=== PATIENT | female | born 1960 | race Caucasian/White ===

== ENCOUNTER 2020-10-23 13:45 | Outpatient (CLI) | payer OTHER | END 2020-10-23 13:46 | disposition critical access hospital (66) | LOC: EMS 13:45 | DX: S09.90XA Unspecified injury of head, initial encounter (principal); W01.198A Fall on same level from slipping, tripping and stumbling with subsequent striking against other object, initial encounter; Y93.K1 Activity, walking an animal; Y92.830 Public park as the place of occurrence of the external cause | CPT/HCPCS: A0425; A0429 ==

== ENCOUNTER 2020-10-23 13:58 | Emergency (ER) | payer OTHER ==
[2020-10-23] MEDS ORDERED: ACETAMINOPHEN 325 MG TABLET PO STA (14:35)
--- NOTE | 2020-10-23 15:48 | CT Report ---
PROCEDURE: CHEST WO INDICATIONS: thoracic midline ttp after fall from standing TECHNIQUE: Noncontrast 5 mm thick sections acquired from the pulmonary apices to the posterior costophrenic angl es. 7 mm thick coronal and sagittal MIP reformats were then acquired. For radiation dose reduction, the following was used: automated exposure control, adjustment of mA and/or kV according to patient size. COMPARISON: None. FINDINGS: Image quality: Excellent. Lungs and pleura: No acute air space opacities. No pleural effusions or pneumothorax. Central and peripheral airways are patent and normal in caliber. Mediastinum: Heart size is normal. No pericardial effusion. No mediastinal adenopathy by size crit eria. Thoracic aorta and central pulmonary arteries are normal in size. Esophagus is normal in lillie gomez. There is a small to moderate hiatal hernia. Bones and chest wall: No suspicious bony lesions. No vertebral body compression fractures. Mild to moderate dextroconvex thoracic scoliotic curvature is seen. Age-appropriate degenerative changes are seen. No axillary or supraclavicular adenopathy by size criteria. The thyroid is normal in size. Abdomen: A simple appearing liver cyst is seen on the right anteriorly, measuring 12 mm and water den sity. Nonobstructing left-sided kidney stones are seen that measure up to 3 mm. The visualized portio ns of the upper abdominal structures are otherwise within normal limits. IMPRESSION: No acute abnormality is seen. Specifically, no pneumothorax, displaced rib fracture, or acute appearing thoracic spine fracture is seen. Incidental note is made of: Mild to moderate dextroconvex scoliosis Small to moderate hiatal hernia Simple appearing liver cyst Nonobstructing left-sided kidney stones Reviewed by: René Whitten MD on 10/23/2020 2:46 PM GABRIELA Approved by: René Whitten MD on 10/23/2020 2:46 PM GABRIELA Station ID: [id number]
--- NOTE | 2020-10-23 16:02 | ED Physician Documentation ---
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 patient does not have neck pain and does not think she hit her head. no other injuries. no neuro deficits. Review of Systems Skin: denies: Lesions, Abrasion (s), Laceration (s) Musculoskeletal: reports: Back pain Neurologic: denies: Focal weakness, Numbness, Head injury, LOC PD PAST MEDICAL HISTORY - Past Medical History Past Medical History: No - Past Surgical History Past Surgical History: Yes /[employer]: section, Tubal ligation - Present Medications Home Medications: Ambulatory Orders Medication Instructions Recorded Confirmed Simvastatin [Zocor] 10 mg PO DAILY 10/23/20 10/23/20 - Allergies Allergies/Adverse Reactions: Allergies Allergy/AdvReac Type Severity Reaction Status Date / Time No Known Drug Allergies Allergy Verified 10/23/20 14:04 - Social History Does the pt smoke?: No Smoking Status: Never smoker Does the pt drink ETOH?: No Does the pt have substance abuse?: No - Immunizations Immunizations are current?: Yes - POLST Patient has POLST: No PD ED PE NORMAL - Vitals Vital signs reviewed: Yes - General General: Alert and oriented X 3, No acute distress, Well developed/nourished - HEENT HEENT: Atraumatic, PERRL, EOMI - Neck Neck: Supple, no meningeal sign, No bony TTP - Cardiac Cardiac: RRR - Respiratory Respiratory: No respiratory distress, Clear bilaterally - Abdomen Abdomen: Non tender, Non distended, Other (pelvis stable) - Back Back: Other (midline thoracic ttp. otherwise nontender) - Derm Derm: Normal color - Extremities Extremities: No deformity, Normal ROM s pain - Neuro Neuro: Alert and oriented X 3 - Psych Psych: Normal mood, Normal affect Results - Vitals Vitals: Vital Signs - 24 hr 10/23/20 16:31 Heart Rate 74 Respiratory 18 Rate Blood Pressure 129/60 O2 Saturation 99 Oxygen O2 Source Room air PD MEDICAL DECISION MAKING - ED course ED course: 60yF presents s/p fall from standing with midline thoracic pain, without acute fracture on ct. return precautions given. she will f.u with her pmd. Departure - Departure Disposition: 01 Home, Self Care Clinical Impression: Fall from standing, Thoracic back pain Condition: Good Instructions: ED Neck Back Pain General Comments: You were seen in the emergency department for thoracic back pain after a fall. Your CT did not show a break in the bone. Follow-up with your primary doctor this week. Return to the emergency department if you experience any new or worsening symptoms or have other concerns. Discharge Date/Time: 10/23/20 17:00
[2020-10-23 16:32] VITALS: BP 129/60
== END 2020-10-23 17:00 | disposition home or self-care (01) ==
LOC: ED 13:58
DX: M54.6 Pain in thoracic spine (principal); W01.0XXA Fall on same level from slipping, tripping and stumbling without subsequent striking against object, initial encounter; Y93.K1 Activity, walking an animal
CPT/HCPCS: 99282; 99284